=== PATIENT | male | born 1955 | race African-American/Black ===

== ENCOUNTER 2017-07-27 14:11 | Emergency (ER) | payer BC ==
[~2017-07-27] VITALS: Ht 177.8 cm; Wt 90.7 kg
[2017-07-27 14:19] VITALS: BP 125/87
--- NOTE | 2017-07-27 14:45 | Emergency Room Report ---
History of Present Illness General Chief Complaint: Chest Pain Source: EMS Present Illness HPI 61-year-old male with a history of the status post liver transplant as well as HIV on antiretroviral therapy Presents with diarrhea for 4 days nonbloody He went to his urgent care who did an EKG because upon review of systems he said he was having some slight chest pressure and felt slightly short of breath time to time He was sent here for an evaluation as his found to have changes in his EKG from his previous EKG on the records His EKG shows a right bundle-branch block but i do not know if this is new or old Patient currently has no chest pressure or shortness of breath He denies recent travel, leg pain, leg swelling, hemoptysis, syncope, diaphoresis, nausea, vomiting. He also denies recent antibiotic use or changes in any of his medication regimen Allergies: Coded Allergies: PENICILLINS (Verified Allergy, Unknown, 07/27/17) Patient History Past Medical History: see triage record Reviewed Nursing Documentation: PMH: Agreed, PSxH: Agreed Nursing Documentation-PMH Past Medical History: No History, Except For Hx Asthma: No - HIV Hx Gastrointestinal Problems: Yes - LIVER TRANSPLANT Review of Systems All Other Systems: negative except mentioned in HPI Physical Exam Vital Signs Date Time Temp Pulse Resp B/P (MAP) Pulse Ox O2 Delivery O2 Flow Rate FiO2 07/27/17 14:09 98.7 87 20 132/94 99 Room Air 98.8 Sp02 EP Interpretation: reviewed, normal General Appearance: no apparent distress, alert, non-toxic Head: normocephalic Eyes: bilateral eye normal inspection, bilateral eye PERRL, bilateral eye EOMI ENT: normal ENT inspection, hearing grossly normal, normal pharynx, no angioedema, normal voice, moist mucus membranes Neck: normal inspection, full range of motion, supple, supple/symm/no masses Respiratory: chest non-tender, lungs clear, normal breath sounds, chest symmetrical, palpation of chest normal Cardiovascular #1: normal peripheral pulses, regular rate, rhythm Cardiovascular #2: 2+ radial (R), 2+ radial (L), 2+ dorsalis pedis (R), 2+ dorsalis pedis (L) Gastrointestinal: normal inspection, non tender, soft, no mass, no guarding, no rebound Rectal: deferred Genitourinary: normal inspection, no CVA tenderness Musculoskeletal: back normal, gait/station normal, normal range of motion, non- tender, no calf tenderness, Sammie's Sign negative Neurologic: alert, responsive, mirror machine feeder III-XII nml as tested, motor strength/tone normal, sensory intact, speech normal Psychiatric: judgement/insight normal, memory normal, mood/affect normal, no suicidal/homicidal ideation Skin: normal color, no rash, warm/dry, normal turgor Lymphatic: no adenopathy Medical Decision Making Diagnostic Impression: Primary Impression: Chest pain Additional Impression: Diarrhea EKG Diagnostic Results EKG Time: 14:36 Rate: normal Rhythm: NSR ST Segments: no acute changes Other Impression sinus rhythm rate 86 right bundle-branch block morphology normal QTC of 473 ASA given to the pt in ED: Yes Rhythm Strip Diag. Results EP Interpretation: yes Rate: 99 Rhythm: NSR, no PVC's, no ectopy Chest X-Ray Diagnostic Results Chest X-Ray Diagnostic Results : Chest X-Ray Ordered: Yes # of Views/Limited/Complete: 1 View Indication: Chest Pain EP Interpretation: Yes PA Xray: Interpretation reviewed Interpretation: no consolidation, no effusion, no pneumothorax, no acute cardiopulmonary disease Impression: No acute disease Electronically Signed by: Telma Elena MD Reevaluation Time: 15:37 Last Vital Signs Date Time Temp Pulse Resp B/P (MAP) Pulse Ox O2 Delivery O2 Flow Rate FiO2 07/27/18 14:09 98.7 87 20 132/94 99 Room Air 98.8 Status: improved Reevaluation Impression Patient is very well appearing, not having active chest pain or shortness of breath, symptoms have been going on for about a week, he has a soft nontender abdomen, unremarkable labs, and has not exhibited any vomiting or diarrhea here. His chest pain workup was fairly unremarkable other than a right bundle branch block on EKG. I will discharge him with follow-up with his primary care doctor for consideration of outpatient cardiology referral, however his main complaint was diarrhea and only upon thinking hard 80s say that maybe he may be having some chest pressure from time to time but again, not currently. I will recommend he avoid any exercise or sexual activity until he get referred to a lead ios developer. He seemed to understand and agree to follow this recommendation. He is very low risk for acute coronary syndrome other than his HIV status and dyslipidemia he has no risk factors. I will recommend he continue to stay hydrated with Gatorade and have his electrolytes checked again due to his diarrhea. I do not suspect any severe diarrheal illness such as toxic megacolon or C. difficile colitis or any AIDS-related illness. His d-dimer was negative so I also do not suspect any PE. Disposition: HOME, SELF-CARE Condition: Stable TELMA ELENA M.D Jul 27, 2017 14:44
[2017-07-27 15:08] LABS: BASOPHILS % (AUTO) 2.4 % (0.0-2.0); EOSINOPHILS % (AUTO) 0.1 % (0.0-3.0); HEMATOCRIT 48.5 % (42.0-52.0); HEMOGLOBIN 16.5 G/DL (14.2-18.0); LYMPHOCYTES % (AUTO) 35.9 % (20.0-45.0); MEAN CORPUSCULAR VOLUME 87 FL (80-99); MONOCYTES % (AUTO) 4.8 % (1.0-10.0); NEUTROPHILS % (AUTO) 56.8 % (45.0-75.0); PLATELET COUNT 201 K/UL (150-450); RED BLOOD COUNT 5.56 M/UL (4.70-6.10); RED CELL DISTRIBUTION WIDTH 11.5 % (11.6-14.8)
[2017-07-27 15:09] LABS: ANION GAP 7 mmol/L (5-15); BLOOD UREA NITROGEN 15 mg/dL (7-18); CALCIUM 8.5 MG/DL (8.5-10.1); CARBON DIOXIDE 26 MMOL/L (21-32); CHLORIDE 105 MMOL/L (98-107); POTASSIUM 3.6 MMOL/L (3.5-5.1); SODIUM 138 MMOL/L (136-145)
[2017-07-27 15:23] LABS: ALANINE AMINOTRANSFERASE 65 U/L (12-78); ALBUMIN 3.4 G/DL (3.4-5.0); ALBUMIN/GLOBULIN RATIO 0.8 (1.0-2.7); ALKALINE PHOSPHATASE 72 U/L (46-116); ASPARTATE AMINO TRANSFERASE 35 U/L (15-37); BILIRUBIN,TOTAL 0.2 MG/DL (0.2-1.0)
--- NOTE | 2017-07-27 15:51 | Diagnostic Imaging Report ---
Indication: Chest pain Technique: One view of the chest Comparison: none Findings: Nodular opacity at the left lung base likely reflects a nipple shadow. Surgical clips are seen projecting over left upper chest. The lungs and pleural spaces are otherwise clear. The heart size is normal. The aorta is tortuous. The upper mediastinum is unremarkable Impression: No acute process. This agrees with the preliminary interpretation provided by the emergency room physician
[2017-07-27 16:06] VITALS: BP 139/82
[2017-07-27 16:15] VITALS: BP 139/82
--- NOTE | 2017-07-31 18:49 | Cardiology Report ---
APPROVED REPORT EKG Measurement Heart [id number] Sinus rhythm with premature supraventricular complexes Right bundle branch block Possible Inferior infarct, age undetermined Abnormal ECG
== END 2017-07-27 16:15 | disposition home or self-care (01) ==
LOC: EDBD 14:11 → EMR 15:48
DX: R07.9 Chest pain, unspecified (principal); R19.7 Diarrhea, unspecified; Z88.0 Allergy status to penicillin; Z94.4 Liver transplant status; I45.10 Unspecified right bundle-branch block
CPT/HCPCS: 36415; 71045; 80053; 84484; 85025; 85379; 93005; 99283